=== PATIENT | male | born 1985 | race Two or more races ===

== ENCOUNTER → 2024-03-31 | Emergency (ER) | payer OTHER ==
[~2024-03-31] VITALS: Ht 180.3 cm; Wt 83.0 kg
[~2024-03-31] MED LIST: DEPAKOTE ER250 MG PO; FAMOTIDINE/PF 20 MG/2 ML VIAL ONE; FAMOtidine 10 MG/ML (4ML VIAL) IV STA; LORazepam 2 MG/ML VIAL IM STA; LORazepam 2 MG/ML VIAL ONE; RINGERS SOLUTION,LACTATED 1,000 ML IV STA; SEROQUEL25 MG PO
[2024-03-31 16:34] LABS: HEMATOCRIT 49.2 % (39.0-48.0); HEMOGLOBIN 16.6 g/dL (13-16.00); MEAN CELL VOLUME 93.3 fL (80.0-100.00); MEAN CORPUSCULAR HEMOGLOBIN 31.4 pg (27.00-32.0); MEAN CORPUSCULAR HGB CONC 33.6 g/dl (32.0-36.0); PLATELET COUNT 324 K/uL (150-450); RED BLOOD COUNT 5.28 M/uL (4.00-6.00); RED CELL DISTRIBUTION WIDTH 13.3 % (11.5-14.5)
[2024-03-31 16:59] LABS: ALBUMIN 4.6 gm/dL (3.4-5.0); BILIRUBIN TOTAL 1.11 mg/dL (0.3-1.2); BILIRUBIN,CONJUGATED 0.23 mg/dL (0.0-0.2); BILIRUBIN,UNCONJUGATED 0.88 mg/dL (0.0-0.6); CALCIUM 9.9 mg/dL (8.5-10.1); CREATININE SERUM 1.12 mg/dL (0.70-1.30); GFR 72.99; POTASSIUM 4.81 mEq/L (3.5-5.1); TOTAL PROTEIN 9.1 gm/dL (6.4-8.2)
[2024-03-31 17:11] LABS: PH,URINE 7.5 (5.0-8.0); URINE APPEARANCE Clear; URINE BILIRRUBIN Negative (NEGATIVE); URINE BLOOD Negative; URINE COLOR Dark Yellow; URINE GLUCOSE Negative (NEGATIVE); URINE KETONE Trace (NEGATIVE); URINE LEUKOCYTE Negative; URINE NITRATE Negative; URINE PROTEIN 30 (NEGATIVE)
[2024-03-31 17:15] LABS: URINE EPITHELIAL CELLS 2.3 uL (0.0-38.8); URINE WBC 7.1 uL (0.0-23.2)
[2024-03-31 17:45] LABS: COCAINE POSITIVE (NEGATIVE); METHADONE NEGATIVE (NEGATIVE); OPIATES NEGATIVE (NEGATIVE); THC ( Cannabinoids) NEGATIVE (NEGATIVE); URINE CAST 0.15 uL (0.0-1.40); URINE MUCUS SCANT; URINE SPERM FEW
== END | disposition left against medical advice (07) ==
LOC: ER 13:19
PROVIDERS: General Practice
DX: F14.13 Cocaine abuse, unspecified with withdrawal (principal); F41.9 Anxiety disorder, unspecified; Z20.822 Contact with and (suspected) exposure to COVID-19; Z91.018 Allergy to other foods

== ENCOUNTER → 2024-04-02 | Emergency (ER) | payer OTHER ==
[~2024-04-02] VITALS: Ht 180.3 cm; Wt 83.0 kg
[~2024-04-02] MED LIST changes: -FAMOTIDINE/PF 20 MG/2 ML VIAL ONE; -FAMOtidine 10 MG/ML (4ML VIAL) IV STA; -LORazepam 2 MG/ML VIAL IM STA; -LORazepam 2 MG/ML VIAL ONE; -RINGERS SOLUTION,LACTATED 1,000 ML IV STA
== END | disposition left against medical advice (07) ==
LOC: ER 01:29
DX: Z53.21 Procedure and treatment not carried out due to patient leaving prior to being seen by health care provider (principal)

== ENCOUNTER 2025-04-20 19:48 | Emergency (ER) | payer OTHER ==
[~2025-04-20] VITALS: Ht 172.7 cm; Wt 81.6 kg
[2025-04-20] MEDS ORDERED: NEOMYCIN/POLYMYXIN B/HYDROCORT 20 DR/ML BOTTLE OT STA (21:16)
[2025-04-20] MEDS ORDERED: NEOMYCIN/POLYMYXIN B/HYDROCORT 20 DR/ML BOTTLE OT ONE (21:48)
== END 2025-04-20 22:23 | disposition home or self-care (01) ==
LOC: ER 19:48
DX: H60.8X1 Other otitis externa, right ear (principal); Z91.012 Allergy to eggs; Z91.018 Allergy to other foods